=== PATIENT | male | born 1975 | race Caucasian/White ===

== ENCOUNTER → 2025-05-06 | Outpatient (CLI) | payer OTHER ==
[2025-05-06 11:40] LABS: BASO # 0.1 10*3/uL (0.0-0.1); BASO % 0.8 % (0.0-1.0); EOS # 0.6 10*3/uL (0.0-0.4); EOS % 7.8 % (1.0-4.0); MEAN CELL VOLUME 88.0 fl (80.0-94.0); MEAN CORPUSCULAR HGB 28.7 pg (27.0-31.0); MEAN PLATELET VOLUME 10.6 fl (9.6-12.3); MONO # 0.9 10*3/uL (0.1-1.0); MONO % 11.6 % (3.0-9.0); NEUT # 4.1 10*3/uL (2.3-7.9); NEUT % 52.4 % (47.0-73.0); NUCLEATED RED BLOOD CELL 0.0 % (0.0-0.0); NUCLEATED RED BLOOD CELL 0.0 10*3/uL (0.0-0.0); PLATELET COUNT AUTOMATED 193 10*3/uL (130-400); RED CELL DISTRI WIDTH 13.3 % (0-14.5)
[2025-05-06 12:04] LABS: BUN 10 mg/dl (9-23); SGPT/ALT 20 U/L (5-49)
[2025-05-06 12:25] LABS: FREE T4 1.20 ng/dl (0.89-1.76)
== END | disposition home or self-care (01) ==
LOC: LAB 11:12
PROVIDERS: ATTEND Nurse Practitioner Family
DX: I10 Essential (primary) hypertension (principal); E11.9 Type 2 diabetes mellitus without complications

== ENCOUNTER → 2025-06-18 | Outpatient (CLI) | payer OTHER | END | disposition home or self-care (01) | LOC: US 01:26 | PROVIDERS: ATTEND Nurse Practitioner Family | DX: E04.2 Nontoxic multinodular goiter (principal) ==